=== PATIENT | female | born 1985 | race Caucasian/White ===

== ENCOUNTER 2025-05-17 09:46 | Inpatient (IN) ==
[2025-05-17] MEDS ORDERED: OXYTOCIN 30 UNITS/NSS 30 UNITS/500 ML BAG IV PRN (10:18)
[2025-05-17] MEDS ORDERED: LIDOCAINE 1% LOCAL 20 ML VIAL INFIL PRN (10:18)
--- NOTE | 2025-05-17 10:32 | History & Physical Report ---
Date of Service May 17, 2025 Assessment & Plan (1) 40 weeks gestation of : (2) Encounter for induction of labor: Plan Pitocin Arom when indicated Monitor tracing: currently HR 140, moderate variability, few accelerations, no decelerations noted, irregular contractions Category 1 tracing Labs wnl Admission and Anticipated Discharge Date Admission Date: May 17, 2025 History of Present Illness Chief Complaint: Induction of labor Primary Care Provider: NO PCP Ms. Hernandez is a 39 yo F currently at 40W1D with an KAYLYNN 05/16/25 as determined by LMP who is here for induction. Her was complicated by m ild right renal pyelectasis (declined MFM referral), +HPV pap 09/2024 (with planned pp colpo), and maternal mild cerebral palsy on L. 5-10 contractions. yes movement. --- fluid loss. ---- bloody show. External FHT and external uterine monitors used. Category 1 tracing. Moderate FHT variability. Had regular appointments with OB. Allergies Allergy/AdvReac Type Severity Reaction Status Date / Time No Known Allergies Allergy Verified 05/14/25 15:34 Home Medications Medication Instructions Recorded Confirmed Type ferrous sulfate PO 03/17/25 05/14/25 History 21-iron fu-folic acid PO 03/17/25 05/14/25 History [ Complete] Patient History Medical History (Updated 05/17/25 @ 12:47 by Stephanie Espinoza MD, FACOG) Cerebral palsy Left-sided - Mild Miscarriage History of chicken pox Surgical History (Updated 05/17/25 @ 10:02 by Marcella Chappell, MOMO) Status post surgery Left foot and ankle - lengthening Family History Aunt Breast cancer Denies family history of Ovarian cancer Colorectal cancer Social History (Updated 05/17/25 @ 10:04 by Marcella Chappell, MOMO) Smoking Status: Never smoker Do You Dip or Chew Tobacco: No; Hx Alcohol Use: No Hx Substance Use: No Preferred Language: [place] Communication Ability: Effective Visual Impairment: No Limitations Motor Vehicle Emissions Inspector Required: No Beliefs That Will Affect Care: None marital status: Single marital status details: alyssa Browner Claudia ([phone] Current Living Situation: Significant Other Current Living Situation Comment: lives with dog, cat-fob changing litter current occupational status: employed 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 [employer] Other Information That Helps Us Care for You: No Feels Safe at Home: Yes Diet: regular Assistive Devices: None OB History : 2 Full term: 0 Premature: 0 Total Number of Induced Abortions: 0 Total Number of Spontaneous Abortions: 1 Ectopics: 0 Multiple births: 0 Number of Living Children: 0 [employer] History Last menstrual period: Yes Menstrual reliability: definite Flow: normal Menstrual regularity: regular Monthly: Yes Age at menarche: 14 On control pills at conception: No Menstrual history comments: cycles 28-30 days Details: last pap 09/2024 ASCUS Review of Systems Denies fevers, chills. Denies SOB, wheezing. Additional Comments: Denies CP, palpitations. Physical Exam Constitutional: WD/WN, vitals as above Respiratory: normal respiratory effort, lungs clear to auscultation Gastrointestinal (Abdomen): normal bowel sounds, soft, nontender, no hepatosplenomegaly Inspection/Auscultation: abdomen normal to inspection (gravid) Skin: no rashes, warm and dry Psychiatric: A+Ox3, euthymic affect Lymphatic: no LE edema, William sign negative bilaterally Results & Data Vital Signs (Past 12 Hours) Vital Signs Temp Pulse Resp BP 05/17/25 10:05 36.7 C 81 20 116/72 05/17/25 10:01 81 116/72 Laboratory Results Hgb 12.1 g/dl (12.0-16.0) 03/25/25 Hct 36.3 % (37.0-47.0) L 03/25/25 MCV 88.3 fL (80.0-100.0) 03/25/25 Plt Count 193 K/uL (130-400) 03/25/25 Hep Bs Antigen Negative (Negative) 03/25/25 HIV 1&2 Ab/P24 Ag 4thGn Negative (Negative) 03/25/25 Monitoring External Monitor HR 140, moderate variability, few accelerations, no decelerations noted, irregular contractions Category 1 tracing Supervising Physician Co-Signing Physician Notes Resident Physician Supervision Note: I was present with Dr. Stokes during the history and exam. I discussed the case with the resident and agree with the findings and plan as documented in the note. Any exceptions or clarifications are listed here: 39yo at 40+wks ega for planned induction by due date due to maternal CP. She denies ctx, rom or vb. Declines castro ripening balloon and states ob provider planned to use pitocin on day of admission. PNC c/b 1. pyelectasis 2. AMA PNL rhpos, ri, gbs neg Abd soft gravid nt, efw 7-8#. sve /-2/post/med. fhts categ 1. A/P term, induction, admit, begin pitocin. counseled about benefit of castro ripening balloon but pt refuses. fhts categ 1. Documented By: Stephanie Espinoza MD, FACOG Resident Activity Tracking Resident Involvement: Resident Care Provided Care Provided: Adult Hospital Medicine
[2025-05-17 10:52] LABS: Hematocrit (blood only) 37.9 % (37.0-47.0); Hemoglobin 12.8 g/dl (12.0-16.0); Mean Corpuscular Hemoglobin 29.9 pg (25.0-34.0); Mean Corpuscular Volume 88.6 fL (80.0-100.0); Platelet Count 150 K/uL (130-400); RDW Standard Deviation 45.1 fL (36.4-46.3); Red Blood Count 4.28 M/uL (4.20-5.40); White Blood Count 8.85 K/ul (4.8-10.8)
[2025-05-17] MEDS: LACTATED RINGER'S 1,000 ML IV PRN (11:04)
[2025-05-17] MEDS: OXYTOCIN 30 UNITS/NSS 30 UNITS/500 ML BAG IV PRN (11:05)
--- NOTE | 2025-05-17 14:13 | Labor Progress Brief Note ---
Date of Service May 17, 2025 Subjective Patient complains of pain during contractions. No LOF, no VB, good FM. Assessment & Plan (1) Encounter for induction of labor: Plan: Discussed plan of care. Cervical bettencourt score not favorable. Pitocin, which is what patient accepted earlier today at the start of her induction, has not wrought any change in the cervix, likely due to it being firm and not ready to dilate. Counseled on options I would consider preferable in her situation, including prostaglandins such as cytotec or cervidil, or castro balloon placement. Patient agreeable to castro placement after I explained the process and why I recommend it over the alternatives. Would prefer to do one thing at a time so will stop pitocin and implement castro. monitoring was used to ensure reassuring status. The patient was verbally consented for placement of a castro for cervical ripening, with discussion of risks, benefits and alternatives. All her questions were answered. Her legs were placed in lithotomy position. A lubricated, gloved hand was used to examine the cervix. A stylet was lubricated and inserted into a castro catheter to give it stiffness, and the castro catheter was then advanced along my fingers until it reached the external cervical os. The castro was then fed forward off of the stylet, which was itself never moved beyond the external os, such that the soft catheter advanced into the uterine cavity outside of the amnion until the balloon was definitely above the internal cervical os. The balloon was then inflated using sterile water to 30cc volume. Gentle traction was used to seat the balloon downward against the internal cervical os. My hand and the stylet were removed from the vagina, and the castro was secured to the patient's leg with a standard castro holding sticker. There was no significant bleeding or leakage of fluid. The heart tones remained reassuring after this process, which the patient tolerated well. Once the balloon falls out, pitocin will be resumed. Admission and Anticipated Discharge Date Admission Date: May 17, 2025 Physical Exam Genitourinary: /-2 Cervix firm, midposition FHT Cat 1 [place] Q2-4 Pit @ 7 Patient observed to smile and converse through at least 2 traced contractions Results & Data Vital Signs (Past 12 Hours) Vital Signs Temp Pulse Resp BP 05/17/25 14:00 81 129/74 05/17/25 13:20 78 18 122/71 05/17/25 12:13 84 18 118/73 05/17/25 11:03 79 18 125/75 05/17/25 10:05 98.1 F 81 20 116/72 05/17/25 10:01 81 116/72 Coding Level of Care Code None Diagnoses Encounter for induction of labor Z34.90
--- NOTE | 2025-05-17 19:11 | Labor Progress Brief Note ---
Date of Service May 17, 2025 Subjective Tolerating ctx well. Assessment & Plan (1) Encounter for induction of labor: Plan: Patient ready for epidural now that AROM has occurred. Anesthesia notified. Continue titration of pitocin. Admission and Anticipated Discharge Date Admission Date: May 17, 2025 Physical Exam Genitourinary: /-2 AROM occurred during exam just with finger; copious clear fluid FHT Cat 1 [place] Q2-5 irreg. Results & Data Vital Signs (Past 12 Hours) Vital Signs Temp Pulse Resp BP 05/17/25 19:02 94 H 133/70 05/17/25 18:24 90 18 129/63 05/17/25 15:06 98.2 F 67 20 133/75 05/17/25 14:00 81 18 129/74 05/17/25 13:20 78 18 122/71 05/17/25 12:13 84 18 118/73 05/17/25 11:03 79 18 125/75 05/17/25 10:05 98.1 F 81 20 116/72 05/17/25 10:01 81 116/72 Coding Level of Care Code None Diagnoses Encounter for induction of labor Z34.90
[2025-05-17] MEDS: LIDOCAINE 2%/EPINEPHRINE 1:200,000 20 ML PF ONE (19:45)
[2025-05-17] MEDS: fentANYL 2 MCG/ML BUPIVacaine 0.125%-NSS 100ML BAG ONE (19:45)
[2025-05-17] MEDS: SODIUM CHLORIDE 0.9% PF INJ 10 ML VIAL ONE (19:46)
[2025-05-17] MEDS: BUPIVACAINE 0.25% PF 30 ML VIAL ONE (19:46)
[2025-05-17] MEDS: BUTORPHANOL TARTRATE 1 MG/ML VIAL IV ONE (19:51)
[2025-05-17] MEDS ORDERED: ONDANSETRON INJ 2 MG/ML 2 ML VIAL IV PRN (20:00)
[2025-05-17] MEDS ORDERED: ROPIVACAINE 0.5% PF 5 MG/ML 20 ML VIAL EPI PRN (20:00)
[2025-05-17] MEDS ORDERED: NALOXONE HCL 1 MG in SODIUM CHLORIDE 0.9% 1,000 ML IV PRN (20:00)
[2025-05-17] MEDS ORDERED: NALOXONE HCL 0.4 MG/1 ML VIAL/CARP IV PRN (20:00)
[2025-05-17] MEDS ORDERED: LIDOCAINE 2% MPF LOCAL 5 ML VIAL EPI PRN (20:00)
[2025-05-17] MEDS ORDERED: NALBUPHINE HCL INJ 10 MG/ML AMP IV PRN (20:00)
[2025-05-17] MEDS ORDERED: SODIUM CHLORIDE 0.9% PF INJ 10 ML VIAL EPI PRN (20:00)
[2025-05-17] MEDS ORDERED: BUPIVACAINE 0.25% PF 30 ML VIAL EPI PRN (20:00)
[2025-05-17] MEDS ORDERED: diphenhydrAMINE 50 MG/ML VIAL IV PRN (20:00)
--- NOTE | 2025-05-17 20:00 | Anesthesiology Consultation ---
Date of Service May 17, 2025 Assessment & Plan Chart Review Chart Review: Patient NOT seen in Pre Admission Testing and Acceptable Risk for Labor Epidural Consults Requested none ASA ASA2 Proposed Anesthesia Anesthesia Type: Labor Epidural Risk / Benefits Reviewed With: PT / POA / Parent / Guardian, Accepts Plan and Informed Consent Obtained History Height/Weight Height: 5 ft 5 in Weight: 80.739 kg Allergies Allergy/AdvReac Type Severity Reaction Status Date / Time No Known Allergies Allergy Verified 05/14/25 15:34 Medications Home Medications Medication Instructions Recorded Confirmed Last Taken ferrous sulfate PO 03/17/25 05/14/25 05/16/25 21-iron fu-folic acid PO 03/17/25 05/14/25 05/16/25 [ Complete] Active Medications Generic Name Dose Route Start Last Admin Trade Name Freq PRN Reason Stop Dose Admin Oxytocin 30 units in 500 mls @ 5 mls/hr 05/17/25 10:18 05/17/25 19:30 Pitocin 30 Units/Nss IV 05/19/25 10:17 0.3 units/hr .Q24H PRN 5 mls/hr Labor Induction/Augmentation Titration Protocol 0.3 UNITS/HR Lactated Ringer's 1,000 mls @ 125 mls/hr 05/17/25 10:18 05/17/25 19:52 Lr IV 05/19/25 10:17 125 mls/hr .Q8H PRN Infusion L&D Protocol Protocol Past Medical History Medical History (Updated 05/17/25 @ 12:47 by Stephanie Espinoza MD, FACOG) Cerebral palsy Left-sided - Mild Miscarriage History of chicken pox Exercise / Class Metabolic Activity II 4-5 Yardwork/Stairs/Walk up hill Past Family History Family History Aunt Breast cancer Denies family history of Ovarian cancer Colorectal cancer Past Surgical History Surgical History (Updated 05/17/25 @ 10:02 by Marcella Chappell RN) Status post surgery Left foot and ankle - lengthening Past Anesthesia History No Hx of Anesthesia Complications and No Family Hx of Anesthesia Complications History of PONV No Hx of PONV and No Hx of Motion Sickness Social History Smoking Status: Never smoker Do You Dip or Chew Tobacco: No Hx Alcohol Use: No Hx Substance Use: No Physical Exam Vital Signs Last Vital Signs Temp 36.8 C 05/17/25 15:06 Pulse 103 H 05/17/25 19:58 Resp 18 05/17/25 18:24 BP 113/58 L 05/17/25 19:57 Pulse Ox 85 L 05/17/25 19:58 ENMT Mouth: no dentition abnormality Thyromental Distance: > or= 3.5 Finger Breadths Mallampati Class: II Neck normal visual inspection Respiratory normal respiratory effort Auscultation: lungs clear to auscultation bilaterally Cardiovascular Rate/Rhythm: regular rate and regular rhythm Psychiatric Orientation: alert Testing Laboratory Results 05/17/25 10:31
[2025-05-17] MEDS: CALCIUM CARBONATE 500 MG CHEWABLE TAB PO PRN (21:06)
[2025-05-17] MEDS: SODIUM CHLORIDE 0.9% PF INJ 10 ML VIAL EPI STA (23:11)
[2025-05-17] MEDS: LIDOCAINE 2%/EPINEPHRINE 1:200,000 20 ML PF EPI STA (23:11)
[2025-05-17] MEDS: BUPIVACAINE 0.25% PF 30 ML VIAL EPI STA (23:12)
[2025-05-17] MEDS: CALCIUM CARBONATE 500 MG CHEWABLE TAB ONE (23:22)
[2025-05-18] MEDS: fentANYL 2 MCG/ML BUPIVacaine 0.125%-NSS 100ML BAG EPI PRN (03:11)
[2025-05-18] MEDS: CALCIUM CARBONATE 500 MG CHEWABLE TAB PO PRN (04:24)
--- NOTE | 2025-05-18 05:53 | Delivery Summary ---
Vaginal Delivery Summary Date of Service May 18, 2025 Vaginal Delivery Summary DIAGNOSES: 1. Moran intrauterine at 40w2d gestation. 2. Induction of labor. 3. Group B Streptococcus Neg. PROCEDURE: Spontaneous vaginal delivery without laceration. SURGEON: Sabrina Renee MD. DETAIL SERGEANT: None. QUANTITATIVE BLOOD LOSS: 108 mL. COMPLICATIONS: None. PLACENTA: Spontaneous and intact with a 3-vessel cord. DISPOSITION: Stable to labor and delivery. DESCRIPTION: The patient pushed well and brought the head to in OA position. The infant's head was allowed to deliver with contraction force and no further active pushing, with the perineum protected during this time. There was one nuchal cord. The left shoulder was anterior. The shoulders and body delivered without any difficulty, and the infant was placed on the maternal abdomen. It was vigorous and moving all extremities, and making respiratory efforts. The cord was doubly clamped by the MD and then cut by the FOB. The placenta delivered spontaneously and was noted to be intact and with a 3VC. The cervix, vagina and perineum were examined and were found to be without defect requiring repair. The fundus was firm and lochia minimal immediately after delivery. [facility] [place] Vaginal Delivery Codes: 73542 global code for the antepartum, delivery, and post-
[2025-05-18] MEDS ORDERED: HYDROCORTISONE ACETATE 25 MG SUPP PR PRN (05:59)
[2025-05-18] MEDS ORDERED: BENZOCAINE 20% SPRY 85 APPLN/85 GM CAN EXT PRN (05:59)
[2025-05-18] MEDS ORDERED: ACETAMINOPHEN 325 MG TAB PO PRN (05:59)
[2025-05-18] MEDS: OXYTOCIN 30 UNITS/NSS 30 UNITS/500 ML BAG IV PRN (06:18)
[2025-05-18] MEDS: DIPHTHER/TETAN/PERTUS Vaccine (Tdap, Adol/Adult) 0.5mL IM ONE (06:29)
--- NOTE | 2025-05-18 09:35 | Anesthesia Procedure Note ---
Date of Service May 18, 2025 Anesthesia Post Epidural Note Vital Signs Vital Signs: Temp Pulse Resp BP Pulse Ox 36.7 C 101 H 20 126/71 94 05/18/25 07:00 05/18/25 09:30 05/18/25 07:00 05/18/25 09:30 05/18/25 05:44 Notes Mental Status: alert / awake / arousable and participated in evaluation Nausea / Vomiting: adequately controlled Pain: adequately controlled Airway Patency, RR, SpO2: stable & adequate BP & HR: stable & adequate Hydration State: stable & adequate Neuraxial Anesthesia: was administered and sensory block resolved Anesthetic Complications: no major complications apparent and Pt Satisfied with anesthetic care Epidural: Removed without complications and With tip intact
[2025-05-18] MEDS: DOCUSATE SODIUM 100 MG CAP PO SCH (10:46)
[2025-05-18] MEDS: PRENATAL VITAMIN 1 TAB PO SCH (10:46)
[2025-05-18] MEDS: IBUPROFEN 600 MG TAB PO PRN (14:29)
--- NOTE | 2025-05-19 06:19 | Obstetrical Progress Note ---
Date of Service <Dasha Stokes DO - Last Filed: 05/19/25 07:10> May 19, 2025 Assessment & Plan <Dasha Stokes DO - Last Filed: 05/19/25 07:10> (1) 40 weeks gestation of : Plan 39 yo post- day 1 s/p . Feels well today. Vital signs stable Continue post- care Encourage ambulation and Pain controlled with ibuprofen Hgb stable <Monserrat Flethcer MD, FACOG - Last Filed: 05/19/25 07:38> (1) 40 weeks gestation of : Subjective <Dasha Stokes DO - Last Filed: 05/19/25 07:10> Review of Systems 39 yo post- day 1 s/p . Ambulation: ambulating normally Voiding: no voiding problems Passing Gas:: Yes Passing Stool:: No Diet Tolerance:: regular diet Lochia:: Small Feeding Type:: breast feeding Current Pain Level: 4/10 Resting comfortably this AM in NAD. Reports some back cramping but is otherwise well. Denies ELKINS, CP, SOB, N/V/D, LE pain/swelling. Constitutional: + as per Subjective / HPI Physical Exam <Dasha Stokes DO - Last Filed: 05/19/25 07:10> Constitutional WD/WN, vitals as above Respiratory normal respiratory effort, lungs clear to auscultation Gastrointestinal (Abdomen) normal bowel sounds, soft, nontender, no hepatosplenomegaly Inspection/Auscultation: abdomen normal to inspection (gravid) Skin no rashes, warm and dry Psychiatric A+Ox3, euthymic affect Results & Data <Dasha Stokes DO - Last Filed: 05/19/25 07:10> Vital Signs (Past 12 Hours) Vital Signs Temp Pulse Resp BP Pulse Ox O2 Del Method 05/19/25 04:00 36.6 C 65 14 91/60 L 98 Room Air 05/18/25 23:25 36.6 C 81 14 106/67 98 Room Air 05/18/25 19:40 36.7 C 82 16 105/69 98 Room Air Laboratory Results Hgb 12.1 g/dl (12.0-16.0) 03/25/25 Hct 36.3 % (37.0-47.0) L 03/25/25 MCV 88.3 fL (80.0-100.0) 03/25/25 Plt Count 193 K/uL (130-400) 03/25/25 Hep Bs Antigen Negative (Negative) 03/25/25 HIV 1&2 Ab/P24 Ag 4thGn Negative (Negative) 03/25/25 Hep C IgG 13yrs+ Old negative Pap Test ASCUS +HPV Chlamydia not detected Gonorrhea not detected Rubella Non reactive Supervising Physician <Monserrat Fletcher MD, FACOG - Last Filed: 05/19/25 07:38> Co-Signing Physician Notes Resident Physician Supervision Note: I interviewed and examined the patient. Discussed with Dr. Anderson and agree with findings and plan as documented in the note. Any exceptions or clarifica tions are listed here: Doing well. Routine care. Documented By: Monserrat Fletcher MD, FACOG Resident Activity Tracking <Dasha Stokes DO - Last Filed: 05/19/25 07:10> Resident Involvement: Resident Care Provided Care Provided: Adult Hospital Medicine
[2025-05-19 06:21] LABS: Hematocrit (blood only) 31.9 % (37.0-47.0); Hemoglobin 10.7 g/dl (12.0-16.0); Mean Corpuscular Hemoglobin 29.4 pg (25.0-34.0); Mean Corpuscular Volume 87.6 fL (80.0-100.0); Platelet Count 120 K/uL (130-400); RDW Standard Deviation 44.7 fL (36.4-46.3); Red Blood Count 3.64 M/uL (4.20-5.40); White Blood Count 11.59 K/ul (4.8-10.8)
[2025-05-19 08:49] VITALS: RESP 18
--- NOTE | 2025-05-20 06:35 | Obstetrical Progress Note ---
Date of Service <Dasha Stokes DO - Last Filed: 05/20/25 07:55> May 20, 2025 Assessment & Plan <Dasha Stokes DO - Last Filed: 05/20/25 07:55> (1) care following vaginal delivery: Plan 39 yo post- day 2 s/p . Feels well today. Vital signs stable Continue post- care Encourage ambulation and Pain controlled with ibuprofen Hgb stable Discharge home today, follow up with Dr. Renee in 6 weeks. <Yassine Esteban MD - Last Filed: 05/21/25 12:48> (1) care following vaginal delivery: Subjective <Dasha Stokes DO - Last Filed: 05/20/25 07:55> 39 yo post- day 2 s/p . Ambulation: ambulating normally Voiding: no voiding problems Passing Gas:: Yes Passing Stool:: Yes Diet Tolerance:: regular diet Lochia:: Small Feeding Type:: breast feeding Current Pain Level: 0/10 Resting comfortably this AM in NAD. Denies ELKINS, CP, SOB, N/V/D, LE pain/swelling. Constitutional: + as per Subjective / HPI Physical Exam <Dasha Stokes DO - Last Filed: 05/20/25 07:55> General: patient resting comfortably, NAD, non-toxic in appearance, AA&O x 4, answers questions appropriately. Skin: warm, dry, intact HEENT: NC/AT, anicteric sclera, conjunctiva without injection, moist mucus membranes. Heart: +S1/S2, regular, no m/r/g Lungs: equal air entry bilaterally, no rales/rhonchi/wheezes Abd: +BS, soft, NT/ND, uterine fundus firm at umbilicus Ext: warm, no clubbing/cyanosis or edema, Wililam's neg. Neuro: nonfocal, patient AA&O x 4, speech intact, no facial droop, moving all extremities on command. Results & Data <Dasha Stokes DO - Last Filed: 05/20/25 07:55> Vital Signs (Past 12 Hours) Vital Signs Temp Pulse Pulse Resp BP Pulse Ox O2 Del Method 05/19/25 23:00 36.9 C 75 18 129/68 97 Room Air 08/20/25 19:15 36.7 C 75 18 106/70 97 Room Air Laboratory Results Hgb 12.1 g/dl (12.0-16.0) 03/25/25 Hct 36.3 % (37.0-47.0) L 03/25/25 MCV 88.3 fL (80.0-100.0) 03/25/25 Plt Count 193 K/uL (130-400) 03/25/25 Hep Bs Antigen Negative (Negative) 03/25/25 HIV 1&2 Ab/P24 Ag 4thGn Negative (Negative) 03/25/25 Supervising Physician <Yassine Esteban MD - Last Filed: 05/21/25 12:48> Co-Signing Physician Notes Patient seen with resident and agree with the above findings and plan. Stable for discharge Resident Activity Tracking <Dasha Stokes DO - Last Filed: 05/20/25 07:55> Resident Involvement: Resident Care Provided Care Provided: OB Delivery
[2025-05-20 06:41] LABS: Hematocrit (blood only) 34.1 % (37.0-47.0); Hemoglobin 11.6 g/dl (12.0-16.0)
[2025-05-20 07:33] VITALS: BP 119/84; PULSE 85; TEMP 97.5; O2SAT 100
== END 2025-05-20 10:14 | disposition home or self-care (01) | DRG 807 ==
LOC: 4S1 09:46 → 4E2 05-18 10:30
DX: O09.523 Supervision of elderly multigravida, third trimester; G80.9 Cerebral palsy, unspecified; O99.354 Diseases of the nervous system complicating childbirth; O28.8 Other abnormal findings on antenatal screening of mother; O69.81X0 Labor and delivery complicated by cord around neck, without compression, not applicable or unspecified; Z37.0 Single live birth; Z79.899 Other long term (current) drug therapy; Z3A.40 40 weeks gestation of pregnancy; O26.893 Other specified pregnancy related conditions, third trimester